=== PATIENT | female | born 1985 | race Caucasian/White ===

== ENCOUNTER 2018-05-10 16:07 | Emergency (ER) | payer SELFPAY ==
[~2018-05-10] VITALS: Ht 167.6 cm; Wt 70.9 kg
[~2018-05-10 16:07] MED LIST: HYDROCODON-ACE1 EAC7 PO; MOTRIN600 MG PO
[2018-05-10 16:22] VITALS: Ht 167.6 cm; Wt 70.9 kg
[2018-05-10 18:32] LABS: BASOPHILS 0.9 % (0-2); EOSINOPHILS 0.7 % (0-7); HEMATOCRIT 44.8 % (36.0-48.0); HEMOGLOBIN 15.9 g/dL (12-16); IMMATURE GRANULOCYTES 0.4 % (0-5); LYMPHOCYTES 34.3 % (15-50); MCH 35.7 pg (26.0-34.0); MCHC 35.5 g/dL (31.0-37.0); MCV 100.7 fL (80.0-100.0); MEAN PLATELET VOLUME 10.7 fL (7.4-10.4); MONOCYTES 7.3 % (2-11); NEUTROPHILS 56.4 % (40-80); PLATELET COUNT 139 10x3/uL (130-400); RBC 4.45 10x6/uL (4.00-5.40); WBC 5.7 10x3/uL (4.8-10.8)
[2018-05-10 18:48] LABS: ALBUMIN 4.5 g/dL (3.4-5.0); ALKALINE PHOSPHATASE 83 U/L (46-116); ALT (SGPT) 153 U/L (10-68); BILIRUBIN - TOTAL 0.76 mg/dL (0.2-1.3); CALC OSMOLALITY 286 mosm/kg (275-300); CALCIUM 9.1 mg/dL (8.5-10.1); CARBON DIOXIDE 26.6 mmol/L (21.0-32.0); CHLORIDE - SERUM 102 mmol/L (98-107); CREATININE - SERUM 0.5 mg/dL (0.6-1.3); GLUCOSE 84 mg/dL (74-106); POTASSIUM - SERUM 3.6 mmol/L (3.5-5.1); PROTEIN - SERUM 8.5 g/dL (6.4-8.2); SODIUM 146 mmol/L (136-145); UREA NITROGEN 4 mg/dL (7-18); eGFR NON AFRICAN AMERICAN > 90 mL/min (90-120)
[2018-05-10 18:49] LABS: APTT 27.6 SECONDS (22.8-39.4); INR 0.95 (0.85-1.17); PROTIME 12.2 SECONDS (11.6-15.0)
[2018-05-10 20:02] LABS: HCG URINE NEGATIVE (NEGATIVE)
[2018-05-10 20:03] LABS: APPEARANCE CLOUDY (CLEAR); BILIRUBIN NEGATIVE (NEGATIVE); COLOR RED (YELLOW); GLUCOSE NEGATIVE (NEGATIVE); KETONE LARGE mg/dL (NEGATIVE); NITRITE NEGATIVE (NEGATIVE); PROTEIN TRACE mg/dL (NEGATIVE); SPECIFIC GRAVITY 1.015 (1.005-1.020); UROBILINOGEN NORMAL (NORMAL)
[2018-05-10 20:05] LABS: UDS - AMPHET NEGATIVE QUAL (NEGATIVE); UDS - BARB NEGATIVE QUAL (NEGATIVE); UDS - BENZO NEGATIVE QUAL (NEGATIVE); UDS - COCAINE NEGATIVE QUAL (NEGATIVE); UDS - OPIATE NEGATIVE QUAL (NEGATIVE); UDS - PCP NEGATIVE QUAL (NEGATIVE); UDS - THC NEGATIVE QUAL (NEGATIVE)
[2018-05-10 20:06] LABS: BACTERIA MODERATE /hpf (NONE SEEN); EPITHELIAL CELLS OCC /hpf (0-5); RED CELLS - URINE >50 /hpf (0-5); WHITE CELLS - URINE OCC /hpf (0-5)
[2018-05-10 20:07] LABS: AMORPHOUS SEDIMENT <1+ /lpf (NONE SEEN); MUCUS <1+ /lpf (NONE SEEN)
[2018-05-10 20:59] VITALS: BP 130/90
== END 2018-05-10 21:01 | disposition home or self-care (01) ==
LOC: D.ER 16:07
PROVIDERS: Family Medicine
DX: N93.9 Abnormal uterine and vaginal bleeding, unspecified (principal)

== ENCOUNTER → 2020-11-14 10:08 | Outpatient (CLI) | payer OTHER ==
[~2020-11-14] VITALS: Ht 167.6 cm; Wt 68.0 kg
[~2020-11-14 10:08] MED LIST changes: +ACETAMINOPHEN500 M1 PO; +CYCLOBENZAPRINE10 MG PO; +IBUPROFEN800 MG PO
[2020-11-14 11:16] LABS: HCG SERUM POSITIVE (NEGATIVE)
[2020-11-14 11:18] LABS: CALC OSMOLALITY 268 mosm/kg (275-300); CALCIUM 8.8 mg/dL (8.5-10.1); CARBON DIOXIDE 26.3 mmol/L (21.0-32.0); CHLORIDE - SERUM 103 mmol/L (98-107); CREATININE - SERUM 0.3 mg/dL (0.6-1.3); GLUCOSE 102 mg/dL (74-106); POTASSIUM - SERUM 3.8 mmol/L (3.5-5.1); SODIUM 136 mmol/L (136-145); UREA NITROGEN 5 mg/dL (7-18); eGFR NON AFRICAN AMERICAN > 90 mL/min (90-120)
[2020-11-14 11:23] LABS: BASOPHILS 0.3 % (0-2); EOSINOPHILS 0.3 % (0-7); HEMATOCRIT 39.6 % (36.0-48.0); HEMOGLOBIN 13.7 g/dL (12-16); MCH 33.3 pg (26.0-34.0); MCHC 34.6 g/dL (31.0-37.0); MCV 96.2 fL (80.0-100.0); MEAN PLATELET VOLUME 8.6 fL (7.4-10.4); MONOCYTES 4.9 % (2-11); NEUTROPHILS 84.5 % (40-80); RBC 4.12 10x6/uL (4.00-5.40); WBC 14.3 10x3/uL (4.8-10.8)
[2020-11-14 11:30] LABS: PLATELET COUNT 242 10x3/uL (130-400)
[2020-11-14 11:31] LABS: ALBUMIN 3.5 g/dL (3.4-5.0); ALKALINE PHOSPHATASE 63 U/L (30-120); ALT (SGPT) 27 U/L (10-68); BILIRUBIN - TOTAL 0.53 mg/dL (0.2-1.3); PROTEIN - SERUM 7.2 g/dL (6.4-8.2)
[2020-11-14 11:50] LABS: HCG - QUANTITATIVE (MATERNAL) 563 mIU/mL
[2020-11-14 11:54] LABS: BACTERIA FEW HPF (<MOD); BILIRUBIN NEGATIVE (NEGATIVE); KETONE NEGATIVE mg/dL (< 1+); NITRITE NEGATIVE (NEGATIVE); PH 6.5 (5.0-8.0); SQUAMOUS EPITHELIAL 4 HPF (0-4); UROBILINOGEN NORMAL mg/dL (< 2)
[2020-11-14 14:58] LABS: HEMATOCRIT 31.1 % (36.0-48.0); HEMOGLOBIN 10.9 g/dL (12-16)
[2020-11-14 16:28] VITALS: BP 121/60
--- NOTE | 2020-11-14 16:28 | NUR ---
RECEIVED PT FROM ER VIA STRETCHER TO ROOM 1276. PT AMBULATES TO BR. STEADY GAIT NOTED. PT VOIDS 300 ML OF BLOOD-TINGED URINE WITH LARGE CLOT NOTED IN SPECIPAN. PERICARE DONE. PANTIES AND PAD ON. GOWN ON. PT AMBULATES BACK TO BED. PT DENIES DIZZINESS OR LIGHTHEADEDNESS. ORTHOSTATIC BP'S OBTAINED- LYING-121/60, HR 89; SITTING-110/60; HR 85; STANDING-112/72, HR 113.
--- NOTE | 2020-11-14 16:50 | NUR ---
DR IBRAHIM TO ROOM. VISITS WITH PT. NOTIFIED OF VS.
[2020-11-14 17:41] VITALS: BP 102/52; Ht 167.6 cm; Wt 68.0 kg
--- NOTE | 2020-11-14 17:50 | NUR ---
ADMISSION ASSESSMENT/HISTORY COMPLETED.
--- NOTE | 2020-11-14 20:34 | NUR ---
ROUNDS COMPLETED, PT ASSISTED OOB TO BR, VOIDS 200ML BLOODY URINE WITH NO CLOTS VISUALIZED, PERICARE PER PT, STEADY GAIT. ASSISTED TO BED, DENIES NEEDS/CONCERNS OTHER THAN DESIRE TO GO HOME SOON POSSIBLE AND/OR EAT. REPORT GIVEN TO PRIMARY CARE NURSE.
--- NOTE | 2020-11-14 21:07 | NUR ---
Report called to Dr. Somers of orthostatic vitals performed and stable and of walking up and down hallway with pt. denying any dizziness, blurred vision or visual disturbances and no ringing in ears. Orders rec to discharge home to return to clinic in a week but to return to hospital if she has heavy bleeding or passage of clots.
--- NOTE | 2020-11-14 21:14 | NUR ---
20 g. iv cath in left forearm discontinued with cath tip intact. pt. request to just hold pressure on with 2x2 due to not wanting anymore tape. pt. inquires regarding a work excuse. Instructed pt. that i will get her one ready.
--- NOTE | 2020-11-14 21:40 | NUR ---
PT. DISCHARGED AMBULATORY
== END | disposition home or self-care (01) ==
LOC: D.LDO 10:08 → D.ER 10:08 → EDSTATUS 14:21
PROVIDERS: Family Medicine; ATTEND Obstetrics & Gynecology
DX: O03.9 Complete or unspecified spontaneous abortion without complication (principal); R61 Generalized hyperhidrosis; I95.89 Other hypotension